=== PATIENT | male | born 1995 | race Caucasian/White ===

== ENCOUNTER 2018-02-11 01:40 | Emergency (ER) | payer OTHER ==
[~2018-02-11] VITALS: Ht 190.5 cm; Wt 96.1 kg
[2018-02-11 01:46] VITALS: TEMP 36.7; Ht 190.5 cm; Wt 96.1 kg
--- NOTE | 2018-02-11 02:04 | EMERGENCY ROOM VISIT NOTE ---
History Report prepared by Mike: Crystal Valenzuela Under the Supervision of: Dr. Michelle Connolly D.O. First contact with patient: 01:41 Chief Complaint: ALCOHOL OVERDOSE Stated Complaint: ALCOHOL OVERDOSE Nursing Triage Summary: Patient presents S for evaluation of alcohol overdose. Patient refused to pay his bill at a bar. Police were called. PBT: 0.289 Patient denies drinking alcohol. Denies drug use. Denies injury/pain. History of Present Illness The patient is a 23 year old male who presents to the Emergency Room with complaints of an episode alcohol intoxication occurring prior to arrival. Per EMS, the patient was at [employer] at a large constitution party being thrown there and refused to pay his bill. They report that the police were called, but they called EMS when they saw how drunk he was. They report that the patient blew a 289 PBT and his blood sugar in the field is normal. They note that the patient' s tongue is really white. The patient notes that he has not drank water since he graduated on Saturday. The patient denies drinking, doing any drugs, and falling. HPI and ROS limited secondary to alcohol intoxication. Source of History: patient, EMS History Limited By: intoxication Onset: prior to arrival Position: other (global) Quality: other (alcohol intoxication) Timing: other (episode) Note: EMS complains of the patient's tongue being white. The patient denies falling, drinking alcohol, and doing drugs. Review of Systems HPI and ROS limited secondary to alcohol intoxication. Past Medical & Surgical Medical Problems: (1) No Known Active Medical Problems No known medical problems. Family History No pertinent family history Social History Smoking Status: Never Smoker Alcohol Use: heavy Marital Status: single Housing Status: lives with roommate Occupation Status: [employer] Physical Exam Vital Signs Date Time Temp Pulse Resp B/P (MAP) Pulse Ox O2 Delivery O2 Flow Rate FiO2 02/11/18 05:59 91 17 110/53 95 Room Air 02/11/18 05:02 95 02/11/18 05:00 93 18 85/54 92 Room Air 02/11/18 04:01 85 18 102/38 93 Room Air 02/11/18 03:26 83 14 91/40 93 Room Air 02/11/18 02:34 129 18 97 Nasal Cannula 2.0 02/11/18 01:47 146 02/11/18 01:46 36.7 142 18 143/83 97 Room Air Physical Exam General: Pleasant, cooperative. Smells of alcohol. HEENT: Head - normocephalic and atraumatic Pupils are 8 mm and nonreactive to light. Extraocular eye muscles are intact, and sclera are anicteric. Nose - moist nasal mucosa without discharge. Mouth - moist buccal mucosa. Oropharynx is nonerythematous and there is no tonsillar exudate or edema noted. Neck: Supple; no JVD, nuchal rigidity, cervical lymphadenopathy, or auscultated bruits. Heart: Tachycardic rate and regular rhythm. There is a normal S1 and S2 with no murmurs, clicks, or gallops appreciated. Lungs: Clear to auscultation bilaterally with no wheezes, rales, or rhonchi. Abdomen: Soft, completely nontender, nondistended, with good bowel sounds. There are no palpable pulsatile masses or hepatosplenomegaly. There is no guarding, rigidity, or rebound noted. Extremities: No evidence of cyanosis, clubbing, or edema. There are easily palpable peripheral pulses. Skin: warm and dry with good turgor and no rashes. Medical Decision & Procedures Laboratory Results 02/11/18 01:53 Test 02/11/18 01:53 Anion Gap 10.0 mmol/L (3-11) Est Creatinine Clear Calc Drug Dose 120.4 ml/min Estimated GFR () 104.1 Estimated GFR (Non- 89.8 BUN/Creatinine Ratio 6.9 (10-20) Calcium Level 8.3 mg/dl (8.5-10.1) Ethyl Alcohol mg/dL 297.0 mg/dl (0-3) Laboratory results per my review. ED Course 0153: Past medical records reviewed. The patient was evaluated in room A11B. A complete history and physical exam was performed. The patient was placed in the prone position to avoid aspiration. They were observed on the cardiac rehab nurse and pulse oximeter. Labs were drawn as above 0252: I reevaluated the patient and he is sound asleep. His vitals are stable. 0458: I reevaluated the patient and he is sleeping. He is hemodynamically stable. 0600: Nursing staff is attempting to wake the patient at this time and have the patient call for a ride home. 0615: Upon reevaluation, the patient is awake. I discussed findings and results with him. I also discussed the hazards of such alcohol use. He verbalized agreement of the treatment plan. The patient is unable to get a friend and will sober up a bit more before he is discharged. Medical Decision The patient is a 23 year old male who presents to the Emergency Room with complaints of an episode alcohol intoxication occurring prior to arrival. Differential diagnoses include alcohol overdose, drug intoxication, hypoglycemia , head injury. LABS: Alcohol 297 Potassium 3.2 Glucose 143 The patient was brought to the emergency department after consuming too much alcohol. There were no obvious signs of trauma or complaints of pain. They were observed closely throughout the night and remained stable while here in the ER. The patient will sober up prior to discharge. I had a conversation with the patient about the hazards of such excessive alcohol use. The patient will continue to sober up and the nurses will discharge him when he has a ride or he can safely take himself home. Medication Reconcilliation Current Medication List: was personally reviewed by me Blood Pressure Screening Patient's blood pressure: Normal blood pressure Blood pressure disposition: Did not require urgent referral Impression Primary Impression: Alcohol overdose Scribe Attestation The scribe's documentation has been prepared under my direction and personally reviewed by me in its entirety. I confirm that the note above accurately reflects all work, treatment, procedures, and medical decision making performed by me. Departure Information Dispostion Home / Self-Care Forms HOME CARE DOCUMENTATION FORM, IMPORTANT VISIT INFORMATION Patient Instructions My [facility] Additional Instructions Avoid such excessive alcohol use in the future. Tylenol 650 mg every 6 hours for headache. Drink plenty of fluids and take a bland diet today. Return to the emergency department for worsening symptoms or any medical concerns. Problem Qualifiers Primary Impression: Alcohol overdose Encounter type: initial encounter Injury intent: accidental or unintentional Qualified Codes: T51.91XA - Toxic effect of unspecified alcohol , accidental (unintentional), initial encounter
[2018-02-11 02:41] LABS: CALCIUM 8.3 mg/dl (8.5-10.1); CREATININE 1.15 mg/dl (0.60-1.40); POTASSIUM 3.2 mmol/L (3.5-5.1)
[2018-02-11 08:59] VITALS: BP 96/50; PULSE 100; O2SAT 95
== END 2018-02-11 09:26 | disposition home or self-care (01) ==
LOC: EDBD 01:40 → C.EDA 01:41
DX: T51.0X1A Toxic effect of ethanol, accidental (unintentional), initial encounter (principal)